=== PATIENT | male | born 1960 | race Caucasian/White ===

== ENCOUNTER → 2017-12-15 10:56 | Outpatient (CLI) | payer OTHER, SELFPAY ==
[2017-12-15 12:51] LABS: Protein, Urine (Random) 29.6 mg/dL (<11.9); Protein:Creat Ratio 300 mg/g CRE (0-200)
[2017-12-15 12:59] LABS: Albumin, Serum 3.8 g/dL (3.2-5.0); BUN 22 mg/dL (7-18); BUN/Creat Ratio 12.5 RATIO (10-20); Calcium,Total 9.1 mg/dL (8.5-10.1); Chloride 107 mmol/L (98-107); Creatinine, Serum 1.76 mg/dL (0.70-1.30); EST Glomerular Filtration Rate 43 mL/min (>60); Est Glom Filt Rate - Afr Amer 52 mL/min (>60); Glucose 92 mg/dL (74-106); Phosphorus 2.3 mg/dL (2.5-4.9); Potassium 3.8 mmol/L (3.5-5.1); Sodium Level 142 mmol/L (136-145)
[2017-12-16 10:16] LABS: PTHIN 49.7 pg/mL (18.4-80.1)
== END ==
PROVIDERS: Family Provider Family Medicine; PCP Family Medicine; Visit Provider Internal Medicine Nephrology
DX: N18.3 Chronic kidney disease, stage 3 (moderate) (principal)
CPT/HCPCS: 36415; 80069; 82570; 83970; 84156

== ENCOUNTER 2018-03-23 11:45 | Emergency (ER) | payer OTHER, SELFPAY ==
[2018-03-23 11:46] VITALS: BP 138/87; PULSE 70; RESP 16; TEMP 37.1; O2SAT 98; BMI 25.2
[2018-03-23 11:51] VITALS: PULSE 80; RESP 14; O2SAT 97
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
[2018-03-23 12:51] LABS: Absolute Lymphocyte Count 1.01 X10^3/ul (0.83-4.51); Absolute Neutrophil Count 6.3 X10^3/uL (2.0-7.7); Basophil# 0.02 X10^3/uL; Basophil% 0.2 % (0-1); Eosinophil# 0.08 X10^3/uL; Hematocrit 46.1 % (40-54); Hemoglobin 15.5 g/dl (13.0-16.5); Lymphocyte # 1.01 X10^3/ul (4.0); Lymphocyte % 12.3 % (19-41); Mean Corp Hgb Conc 33.6 g/gl (32-36); Mean Corpuscular Hgb 33.1 pg (27.0-32.0); Mean Corpuscular Volume 98.5 fL (80-94); Mean Platelet Vol. 13.5 fl (6.2-12.0); Monocyte# 0.79 X10^3/uL; Monocyte% 9.6 % (0-10); Neutrophil # 6.29 X10^3/uL (2.7-7.7); Neutrophil % 76.7 % (47-70); Platelet Count 97 K/mm3 (150-450); RBC Distribution Width CV 12.6 % (11.6-14.6); RBC Distribution Width SD 44.9 fl (35.1-43.9); Red Blood Count 4.68 M/mm3 (4.6-6.2); White Blood Count 8.2 K/mm3 (4.4-11.0)
[2018-03-23 12:52] LABS: POSITIVE COUNT NO; POSITIVE DIFFERENTIAL NO; POSITIVE MORPHOLOGY NO
[2018-03-23 12:54] LABS: International Normalized Ratio 1.1; Prothrombin Time (Protime)PT. 13.7 SECONDS (11.7-14.9)
[2018-03-23 13:02] LABS: ALB/GLOB Ratio 1.2 RATIO (0.9-2.4); AST(SGOT) 26 U/L (15-37); Alanine Aminotransfer ALT/SGPT 39 U/L (16-61); Albumin, Serum 3.7 g/dL (3.2-5.0); Alkaline Phosphatase 75 U/L (45-117); Anion Gap 4 (5-15); BUN 22 mg/dL (7-18); BUN/Creat Ratio 12.2 RATIO (10-20); Calcium,Total 8.6 mg/dL (8.5-10.1); Chloride 109 mmol/L (98-107); Creatinine, Serum 1.81 mg/dL (0.70-1.30); EST Glomerular Filtration Rate 41 mL/min (>60); Est Glom Filt Rate - Afr Amer 50 mL/min (>60); Estimated Creatinine Clearance 43.56 ml/min; Glucose 104 mg/dL (74-106); Potassium 4.4 mmol/L (3.5-5.1); Protein, Total 6.7 g/dL (6.4-8.2); Sodium Level 142 mmol/L (136-145)
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
[2018-03-23 14:25] VITALS: BP 137/94; PULSE 57; RESP 16; O2SAT 98
== END 2018-03-23 14:26 | disposition home or self-care (01) ==
PROVIDERS: Emergency Provider Emergency Medicine; Family Provider Family Medicine; PCP Family Medicine
DX: S16.1XXA Strain of muscle, fascia and tendon at neck level, initial encounter (principal); S29.012A Strain of muscle and tendon of back wall of thorax, initial encounter; S39.012A Strain of muscle, fascia and tendon of lower back, initial encounter; S50.812A Abrasion of left forearm, initial encounter; V43.52XA Car driver injured in collision with other type car in traffic accident, initial encounter; Y93.9 Activity, unspecified; Y92.9 Unspecified place or not applicable; Y99.9 Unspecified external cause status; I10 Essential (primary) hypertension; D69.6 Thrombocytopenia, unspecified; N28.9 Disorder of kidney and ureter, unspecified
CPT/HCPCS: 70450; 71250; 72125; 73090; 74176; 80053; 85025; 85610; 99284; J7030; A4216

== ENCOUNTER → 2019-11-01 12:37 | Outpatient (CLI) | payer OTHER, SELFPAY ==
[2019-11-01 14:58] LABS: Albumin, Serum 3.8 g/dL (3.2-5.0); BUN 25 mg/dL (7-18); BUN/Creat Ratio 13.2 RATIO (10-20); Calcium,Total 9.4 mg/dL (8.5-10.1); Chloride 105 mmol/L (98-107); Creatinine, Serum 1.89 mg/dL (0.70-1.30); EST Glomerular Filtration Rate 39 mL/min (>60); Est Glom Filt Rate - Afr Amer 47 mL/min (>60); Glucose 92 mg/dL (74-106); Phosphorus 2.3 mg/dL (2.5-4.9); Potassium 4.3 mmol/L (3.5-5.1); Sodium Level 142 mmol/L (136-145)
== END ==
PROVIDERS: Family Provider Family Medicine; PCP Family Medicine; Visit Provider Internal Medicine Nephrology
DX: N18.3 Chronic kidney disease, stage 3 (moderate) (principal)
CPT/HCPCS: 36415; 80069

== ENCOUNTER → 2021-01-08 11:59 | Outpatient (CLI) | payer OTHER, SELFPAY ==
[2021-01-08 13:40] LABS: Albumin, Serum 3.7 g/dL (3.2-5.0); BUN 24 mg/dL (7-18); BUN/Creat Ratio 12.6 RATIO (10-20); Calcium,Total 8.8 mg/dL (8.5-10.1); Chloride 108 mmol/L (98-107); EST Glomerular Filtration Rate 39 mL/min (>60); Est Glom Filt Rate - Afr Amer 47 mL/min (>60); Glucose 97 mg/dL (74-106); Phosphorus 2.1 mg/dL (2.5-4.9); Potassium 3.8 mmol/L (3.5-5.1); Sodium Level 140 mmol/L (136-145)
[2021-01-08 14:25] LABS: PTHIN 106.6 pg/mL (18.4-80.1)
== END ==
PROVIDERS: PCP Family Medicine; Referring Provider Internal Medicine Nephrology; Visit Provider Internal Medicine Nephrology
DX: N18.30 Chronic kidney disease, stage 3 unspecified (principal)
CPT/HCPCS: 36415; 80069; 83970

== ENCOUNTER → 2022-02-04 | Outpatient (CLI) | payer OTHER, SELFPAY ==
[2022-02-04 10:51] LABS: Hematocrit 48.1 % (40-54); Hemoglobin 15.9 g/dL (13.0-16.5); Mean Corp Hgb Conc 33.1 g/dL (32-36); Mean Corpuscular Hgb 32.6 pg (27.0-32.0); Mean Corpuscular Volume 98.8 fL (80-94); Mean Platelet Vol. 14.2 fl (6.2-12.0); Platelet Count 113 K/mm3 (150-450); RBC Distribution Width CV 12.9 % (11.6-14.6); RBC Distribution Width SD 46.9 fl (35.1-43.9); Red Blood Count 4.87 M/mm3 (4.6-6.2)
[2022-02-04 11:07] LABS: PTHIN 115.2 pg/mL (18.4-80.1)
[2022-02-04 11:21] LABS: Albumin, Serum 3.6 g/dL (3.2-5.0); BUN 23 mg/dL (7-18); Chloride 107 mmol/L (98-107); Creatinine, Serum 1.92 mg/dL (0.70-1.30); EST Glomerular Filtration Rate 38 mL/min (>60); Est Glom Filt Rate - Afr Amer 46 mL/min (>60); Glucose 92 mg/dL (74-106); Phosphorus 2.5 mg/dL (2.5-4.9); Potassium 4.1 mmol/L (3.5-5.1); Sodium Level 141 mmol/L (136-145)
== END | disposition home or self-care (01) ==
LOC: LAB 09:45
PROVIDERS: PCP Family Medicine; Referring Provider Internal Medicine Nephrology; Visit Provider Internal Medicine Nephrology
DX: N18.30 Chronic kidney disease, stage 3 unspecified (principal)
CPT/HCPCS: 36415; 80069; 83970; 85027

== ENCOUNTER → 2023-02-12 | Outpatient (CLI) | payer OTHER, SELFPAY ==
[2023-02-12 12:39] LABS: Albumin, Serum 3.5 g/dL (3.2-5.0); BUN 21 mg/dL (7-18); BUN/Creat Ratio 9.9 RATIO (10-20); Calcium,Total 8.8 mg/dL (8.5-10.1); Chloride 112 mmol/L (98-107); Creatinine, Serum 2.12 mg/dL (0.70-1.30); EST Glomerular Filtration Rate 34 mL/min (>60); Est Glom Filt Rate - Afr Amer 41 mL/min (>60); Glucose 75 mg/dL (74-106); Sodium Level 142 mmol/L (136-145)
== END | disposition home or self-care (01) ==
PROVIDERS: PCP Family Medicine; Referring Provider Internal Medicine Nephrology; Visit Provider Internal Medicine Nephrology
DX: N18.30 Chronic kidney disease, stage 3 unspecified (principal)
CPT/HCPCS: 36415; 80069

== ENCOUNTER 2023-12-03 11:50 | Emergency (ER) | payer OTHER, SELFPAY ==
[2023-12-03 11:50] VITALS: BP 103/78; PULSE 97; RESP 14; TEMP 36.4; O2SAT 95
[2023-12-03 13:58] VITALS: BP 107/75; PULSE 75; RESP 16; TEMP 36.2; O2SAT 96
[2023-12-03 14:00] VITALS: BMI 31.6
[2023-12-03] MEDS: oxyCODONE 5 MG Tablet PO (14:07)
--- NOTE | 2023-12-03 14:09 | EDS_ITS ---
HPI <RAFAEL Cantrell - Last Filed: 12/03/23 15:37> History of Present Illness Chief Complaint: Cellulitis Narrative Narrative: Patient is a 63-year-old male with history of hypertension hyperlipidemia who presents to the emergency department 2 days of left knee redness and swelling. 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 He noticed that his left knee was more warm, had more pain, and is here for evaluation. He is not diabetic, denies any fever chills nausea or vomiting. Patient is here for evaluation PFSH <RAFAEL Cantrell - Last Filed: 12/03/23 15:37> [facility] Home Medications ?Medication ?Instructions ?Recorded ?Last Taken ?Type atorvastatin 40 mg tablet 40 mg PO QHS 03/23/18 Unknown History losartan 25 mg tablet 100 mg PO DAILY 03/23/18 Unknown History cephalexin 500 mg capsule 500 mg PO Q6 #40 CAPSULES 12/03/23 Unknown Rx sulfamethoxazole 800 1 tab PO BID #20 tabs 12/03/23 Unknown Rx mg-trimethoprim 160 mg tablet (Bactrim DS) Allergy/AdvReac Type Severity Reaction Status Date / Time No Known Allergies Allergy Verified 12/03/23 11:53 Social History Smoking Status: Never smoker ROS <RAFAEL Cantrell - Last Filed: 12/03/23 15:37> ROS ED ROS Narrative Constitutional: Negative for fever, chills, weight loss, weakness Eyes: Negative for vision loss, vision change, double vision ENT: Negative for any sore throat, ear pain, congestion Cardiovascular: Negative for any chest pain, tightness, palpitations Respiratory: Negative for any cough, sputum production, hemoptysis, dyspnea, dyspnea on exertion, orthopnea Gastrointestinal: Negative for any abdominal pain, nausea, vomiting, diarrhea, constipation, blood in stool, blood in vomit : Negative for any urinary frequency, dysuria, retention, blood in urine Muscle skeletal: Negative for any neck pain, back pain. Positive for pain to the left knee, redness Neurological: Negative for any headache, syncope, dizziness Skin: Negative for any rashes, itching, abrasions, lacerations Psychiatric: Negative for any depression, anxiety, stress, suicidal ideation, homicidal ideation Hematologic: Negative for any excessive bruising, easy bleeding EXAM <Car Hyatt[place] - Last Filed: 12/03/23 15:37> Physical Exam Narrative Exam Narrative: Vital signs reviewed. HEET: Head normocephalic atraumatic, TMs clear bilaterally. Posterior pharynx is clear, moist mucous membranes. Nares clear bilaterally. Neck: Supple with no lymphadenopathy or tenderness. No signs of meningismus. Cardiac: Regular rate and rhythm no murmurs gallops or rubs, equal peripheral pulses bilaterally. Respiratory: Lungs clear to auscultation bilaterally. No chest tenderness. Abdomen: Soft, nontender, nondistended. No abdominal bruit or pulsatile masses. No hepatosplenomegaly Extremities: No peripheral edema, no signs of gross trauma or deformity. Active full range of motion of all extremities. Patient has a intact extensor mechanism, patient does have an area of erythema along the anterior patella, patient is able to flex however states he feels tight. There is a small area of folliculitis around the area. This does appear to be more cellulitic. Neuro: Cranial nerves II through XII intact, no focal neurological deficits. Skin: Clean dry and intact with no rash, purpura, petechiae, vesicles or pustules. Backs/flank: No CVA tenderness, no midline spinal tenderness, no deformity. Psych: Normal mood and affect. No SI, HI or acute psychosis. Const Vital Signs: 12/03/23 11:50 12/03/23 13:58 12/03/23 15:06 Temperature 97.6 F L 97.1 F L 97.9 F Temperature Source Temporal Oral Oral Pulse Rate 97 75 79 Respiratory Rate 14 16 16 Blood Pressure 103/78 107/75 110/90 H Blood Pressure Mean 86 85 96 Pulse Ox 95 96 93 Oxygen Delivery Method Room Air Room Air Room Air 12/03/23 15:46 Temperature 98.1 F Temperature Source Pulse Rate 89 Respiratory Rate 16 Blood Pressure 118/89 H Blood Pressure Mean 98 Pulse Ox 97 Oxygen Delivery Method <Dr. Piero Veronica DO - Last Filed: 12/03/23 16:43> Physical Exam Const Vital Signs: 12/03/23 11:50 12/03/23 13:58 12/03/23 15:06 Temperature 97.6 F L 97.1 F L 97.9 F Temperature Source Temporal Oral Oral Pulse Rate 97 75 79 Respiratory Rate 14 16 16 Blood Pressure 103/78 107/75 110/90 H Blood Pressure Mean 86 85 96 Pulse Ox 95 96 93 Oxygen Delivery Method Room Air Room Air Room Air 12/03/23 15:46 Temperature 98.1 F Temperature Source Pulse Rate 89 Respiratory Rate 16 Blood Pressure 118/89 H Blood Pressure Mean 98 Pulse Ox 97 Oxygen Delivery Method [facility] <Car Hyatt CURRICUL[employer] DEVELOPER-C - Last Filed: 12/03/23 15:37> [facility] Lab Data Labs: Laboratory Results - last 24 hr 12/03/23 14:15 WBC 10.8 RBC 5.00 Hgb 16.3 Hct 48.9 MCV 97.8 H MCH 32.6 H MCHC 33.3 RDW Std Deviation 45.6 H RDW Coeff of Pacheco 12.8 Plt Count 115 L MPV 13.9 H Immature Gran % (Auto) 0.500 Neut % (Auto) 69.7 Lymph % (Auto) 14.2 L [place] % (Auto) 14.0 H Eos % (Auto) 1.2 Baso % (Auto) 0.4 Absolute Neuts (auto) 7.5 Absolute Lymphs (auto) 1.54 Nucleated RBC % 0 Differential Comment COMMENT Sodium 140 Potassium 4.0 Chloride 106 Carbon Dioxide 29.0 Anion Gap 5 BUN 28 H Creatinine 2.04 H Estim Creat Clear Calc 37.43 Est GFR (MDRD) Af Amer 43 L Est GFR (MDRD) Non-Af 35 L BUN/Creatinine Ratio 13.7 Glucose 99 Lactic Acid 1.1 Calcium 9.6 Radiography Diagnostic Testing: Clinical Impression(s) from Imaging Studies Knee X-Ray 12/03/23 14:55 IMPRESSION: Nonspecific soft tissue swelling. Electronically Signed: Ej James MD at 15:26 EDT , Treatment and Re-Evaluation :: Differential diagnosis includes however is not limited to: Septic knee joint, septic bursitis, simple cellulitis, folliculitis, MRSA Patient appears to be in no obvious respiratory distress vital signs are stable, patient does appear nontoxic. Presenting to the emerged part with left knee pain for the last 2 days with some redness. Upon my physical examination, I have low suspicion of any septic bursitis, septic knee joint. Patient has full range of motion however states it feels tight. There is a small pustule on the lateral part of the knee that will be D removed, sent for MRSA PCR. This also be sent for wound culture. Patient received basic laboratory values including CBC BMP and lactic acid. Patient will receive x-rays of the left knee ensuring no osseous or other abnormality. All radiologic examinations were read, reviewed by the emergency department attending. From these reads, a plan of care will be put in place. Patient's CBC was unremarkable, patient's chemistries did show some renal insu fficiency with a creatinine of 2.0 however this is baseline for this patient. I did look at past lab values. Patient's lactic acid was negative. X-ray was negative, additionally some soft tissue swelling. This was interpreted by ER physician. At this time, I have low suspicion for any deep tissue infection, septic joint. Patient be placed on Keflex as well as Bactrim, this will cover any MRSA. Patient did have a outline of the redness, if it gets much worse, the patient will return. He is happy with the plan of care, stable for discharge. <Dr. Piero Veronica, DO - Last Filed: 12/03/23 16:43> MDM History & Record Review Discussion w/independent historian: Patient Lab Data Attestation: I reviewed the patient's lab results. Labs: Laboratory Results - last 24 hr 12/03/23 14:15 WBC 10.8 RBC 5.00 Hgb 16.3 Hct 48.9 MCV 97.8 H MCH 32.6 H MCHC 33.3 RDW Std Deviation 45.6 H RDW Coeff of Pacheco 12.8 Plt Count 115 L MPV 13.9 H Immature Gran % (Auto) 0.500 Neut % (Auto) 69.7 Lymph % (Auto) 14.2 L [place] % (Auto) 14.0 H Eos % (Auto) 1.2 Baso % (Auto) 0.4 Absolute Neuts (auto) 7.5 Absolute Lymphs (auto) 1.54 Nucleated RBC % 0 Differential Comment COMMENT Sodium 140 Potassium 4.0 Chloride 106 Carbon Dioxide 29.0 Anion Gap 5 BUN 28 H Creatinine 2.04 H Estim Creat Clear Calc 37.43 Est GFR (MDRD) Af Amer 43 L Est GFR (MDRD) Non-Af 35 L BUN/Creatinine Ratio 13.7 Glucose 99 Lactic Acid 1.1 Calcium 9.6 Radiography Diagnostic Testing: Clinical Impression(s) from Imaging Studies Knee X-Ray 12/03/23 14:55 IMPRESSION: Nonspecific soft tissue swelling. Electronically Signed: Ej James MD at 15:26 EDT , Treatment and Re-Evaluation :: Differential diagnosis includes however is not limited to: Septic knee joint, septic bursitis, simple cellulitis, folliculitis, MRSA Patient appears to be in no obvious respiratory distress vital signs are stable, patient does appear nontoxic. Presenting to the emerged part with left knee pain for the last 2 days with some redness. Upon my physical examination, I have low suspicion of any septic bursitis, septic knee joint. Patient has full range of motion however states it feels tight. There is a small pustule on the lateral part of the knee that will be D removed, sent for MRSA PCR. This also be sent for wound culture. Patient received basic laboratory values including CBC BMP and lactic acid. Patient will receive x-rays of the left knee ensuring no osseous or other abnormality. All radiologic examinations were read, reviewed by the emergency department attending. From these reads, a plan of care will be put in place. Patient's CBC was unremarkable, patient's chemistries did show some renal insufficiency with a creatinine of 2.0 however this is baseline for this patient. I did look at past lab values. Patient's lactic acid was negative. X-ray was negative, additionally some soft tissue swelling. This was interpreted by ER physician. At this time, I have low suspicion for any deep tissue infection, septic joint. Patient be placed on Keflex as well as Bactrim, this will cover any MRSA. Patient did have a outline of the redness, if it gets much worse, the patient will return. He is happy with the plan of care, stable for discharge. I have personally performed a face to face assessment of the patient and have reviewed the KRISTINA Note. I performed a substantive portion of the visit including all aspects of the following. My ma findings include: History is 63-year-old male presents with red warm skin over the anterior aspect of the left knee. No known trauma. 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 Exam is there is some cellulitic changes of the skin over the anterior right knee and surrounding tissue. There is no palpable joint effusion. There is no obvious bursitis. There is a small pustule just superior lateral to the patella. The outline of the redness was outlined with surgical marking Medical Decison Making patient has not been on any recent antibiotics. He has no fever no elevation in his white count. I was able to deroof the pustule. What came off was a ball of purulent material. There is nothing underneath the skin that came out. This was sent to the lab. Patient is going to be started on antibiotics. Both Keflex and Bactrim were ordered to cover in case this came back as MRSA. Discharge Plan Triage Chief Complaint: Cellulitis ED Midlevel Provider: Car Hyatt ED Provider: Piero Veronica Dx/Rx/DC Orders Clinical Impression: Cellulitis of knee Instructions: ED Cellulitis Prescriptions: New cephalexin 500 mg capsule 500 mg PO Q6 Qty: 40 0RF sulfamethoxazole-trimethoprim [Bactrim DS] 800-160 mg tablet 1 tab PO BID Qty: 20 0RF No Action atorvastatin 40 MG tablet 40 mg PO QHS losartan 25 MG tablet 100 mg PO DAILY Stand Alone Forms: Work / School Excuse Primary Care Provider: Franco Wright Referrals: Franco Wright MD [Primary Care Provider] - Activity Restrictions/Additional Instructions: If the redness gets worse, more swelling, more significant pain, fever or chills, return for any worsening symptoms. Print Language: Nepali Disposition Disposition: Home, Self Care Discharge Date/Time: 12/03/23 15:49
[2023-12-03 14:26] LABS: Absolute Lymphocyte Count 1.54 X10^3/uL (0.83-4.51); Absolute Neutrophil Count 7.5 X10^3/uL (2.0-7.7); Basophil# 0.04 X10^3/uL; Basophil% 0.4 % (0-1); Eosinophil# 0.13 X10^3/uL; Eosinophils% 1.2 % (0-5); Hematocrit 48.9 % (40-54); Hemoglobin 16.3 g/dL (13.0-16.5); Lymphocyte # 1.54 X10^3/ul (0.83-4.51); Lymphocyte % 14.2 % (19-41); Mean Corp Hgb Conc 33.3 g/dL (32-36); Mean Corpuscular Hgb 32.6 pg (27.0-32.0); Mean Corpuscular Volume 97.8 fL (80-94); Mean Platelet Vol. 13.9 fl (6.2-12.0); Monocyte# 1.51 X10^3/uL; NRBC Flagged by Analyzer 0 % (0-5); Neutrophil # 7.54 X10^3/uL (2.7-7.7); Neutrophil % 69.7 % (47-70); POSITIVE DIFFERENTIAL YES; Platelet Count 115 K/mm3 (150-450); RBC Distribution Width CV 12.8 % (11.6-14.6); RBC Distribution Width SD 45.6 fl (35.1-43.9); White Blood Count 10.8 K/mm3 (4.4-11.0)
[2023-12-03 14:27] LABS: Differential Indicated SCAN CRITERIA MET
[2023-12-03 14:38] LABS: Anion Gap 5 (5-15); BUN 28 mg/dL (7-18); BUN/Creat Ratio 13.7 RATIO (10-20); Calcium,Total 9.6 mg/dL (8.5-10.1); Chloride 106 mmol/L (98-107); Creatinine, Serum 2.04 mg/dL (0.70-1.30); EST Glomerular Filtration Rate 35 mL/min (>60); Est Glom Filt Rate - Afr Amer 43 mL/min (>60); Estimated Creatinine Clearance 37.43 ml/min; Glucose 99 mg/dL (74-106); Sodium Level 140 mmol/L (136-145)
--- NOTE | 2023-12-03 14:55 | RAD_ITS ---
STUDY: X-RAY - LEFT KNEE REASON FOR EXAM: Male, 63 years old. Swelling in the erythema. Possible foreign body. TECHNIQUE: 4 view(s) of the knee. COMPARISON: None. FINDINGS: Normal visualized distal femur. Normal visualized proximal tibia and fibula. Normal proximal tibiofibular articulation. Normal medial femorotibial compartment. Normal lateral femorotibial compartment. Normal patellofemoral articulation. Nonspecific soft tissue swelling. RAD/Knee 4 or More Views IMPRESSION: Nonspecific soft tissue swelling. Electronically Signed: Ej James MD at 15:26 EDT ,
[2023-12-03 14:57] LABS: Lactic Acid 1.1 mmol/L (0.4-1.9)
[2023-12-03 15:06] VITALS: BP 110/90; PULSE 79; RESP 16; TEMP 36.6; O2SAT 93
[2023-12-03] MEDS: Cephalexin 250 MG Capsule 500 MG PO (15:41)
[2023-12-03] MEDS: Smz/Tmp Ds Tablet 1 TABLET PO (15:42)
[2023-12-03 15:46] VITALS: BP 118/89; PULSE 89; RESP 16; TEMP 36.7; O2SAT 97
== END 2023-12-03 15:49 | disposition home or self-care (01) ==
PROVIDERS: Nurse Practitioner; Emergency Provider Emergency Medicine; PCP Family Medicine; Visit Provider Emergency Medicine
DX: L03.116 Cellulitis of left lower limb (principal); I10 Essential (primary) hypertension; E78.5 Hyperlipidemia, unspecified; Z79.899 Other long term (current) drug therapy
CPT/HCPCS: 73564; 80048; 83605; 85025; 87070; 87077; 87186; 87205; 87640; 99283

== ENCOUNTER → 2023-12-31 | Outpatient (CLI) | payer OTHER, SELFPAY ==
[2023-12-31 13:43] LABS: Albumin, Serum 3.6 g/dL (3.2-5.0); BUN 22 mg/dL (7-18); BUN/Creat Ratio 10.8 RATIO (10-20); Calcium,Total 8.8 mg/dL (8.5-10.1); Chloride 109 mmol/L (98-107); Creatinine, Serum 2.04 mg/dL (0.70-1.30); EST Glomerular Filtration Rate 35 mL/min (>60); Est Glom Filt Rate - Afr Amer 43 mL/min (>60); Glucose 102 mg/dL (74-106); Sodium Level 139 mmol/L (136-145)
[2023-12-31 13:46] LABS: PTHIN 134.4 pg/mL (18.4-80.1)
== END | disposition home or self-care (01) ==
LOC: LAB 12:25
PROVIDERS: PCP Family Medicine; Referring Provider Internal Medicine Nephrology; Visit Provider Internal Medicine Nephrology
DX: N18.30 Chronic kidney disease, stage 3 unspecified (principal)
CPT/HCPCS: 36415; 80069; 83970